=== PATIENT | male | born 1980 | race Caucasian/White ===

== ENCOUNTER → 2018-01-07 | Outpatient (REF) | payer OTHER ==
[2018-01-07 17:12] LABS: INFLUENZA A AMPLIFICATION POSITIVE (NEGATIVE); INFLUENZA B AMPLIFICATION NEGATIVE (NEGATIVE)
== END ==
LOC: M LAB REF 16:14
DX: J11.1 Influenza due to unidentified influenza virus with other respiratory manifestations (principal)
CPT/HCPCS: 87502

== ENCOUNTER → 2018-01-19 | Outpatient (REF) | payer OTHER | LOC: M LAB REF 09:30 | DX: L02.414 Cutaneous abscess of left upper limb (principal) | CPT/HCPCS: 87070 ==

== ENCOUNTER → 2019-04-23 | Outpatient (REF) | payer OTHER ==
[~2019-04-23] MED LIST: ACET1TAB16 PO; AUGM875T28 PO; CLEO300C2 PO; HYDR-3716 PO; IBUP80TA PO; LISI-538 PO; [UNRECOGNIZED DRUG - CODE] PO; [UNRECOGNIZED DRUG - OTHER] PO
[2019-04-23 18:04] LABS: ALT/SGPT 56 U/L (12-78); BILIRUBIN,TOTAL 0.5 MG/DL (0.2-1.0); BLOOD UREA NITROGEN 16 MG/DL (7-18); CALCIUM LEVEL 8.7 MG/DL (8.5-10.1); CARBON DIOXIDE LEVEL 27 MEQ/L (21-32); CHLORIDE LEVEL 104 MEQ/L (98-107); CHOLESTEROL LEVEL 203 MG/DL (<200); CHOLESTEROL RISK RATIO 5.486 (<5); GLOMERULAR FILTRATION RATE > 60.0 (>60); GLUCOSE, FASTING 102 MG/DL (70-100); HDL CHOLESTEROL 37 MG/DL (>40); LDL CHOLESTEROL 126 MG/DL (<100); NON-HDL-C 166 MG/DL; POTASSIUM SERUM 3.9 MEQ/L (3.5-5.1); SODIUM LEVEL 139 MEQ/L (136-145); TRIGLYCERIDES LEVEL 202 MG/DL (<150)
[2019-04-23 18:25] LABS: HEMOGLOBIN A1c 6.2 %
== END ==
LOC: M SFHCPLAZ 14:43
PROVIDERS: ATTEND Nurse Practitioner Adult Health
DX: I10 Essential (primary) hypertension (principal); Z13.220 Encounter for screening for lipoid disorders; Z68.41 Body mass index [BMI] 40.0-44.9, adult

== ENCOUNTER → 2020-09-28 | Outpatient (REF) | payer OTHER ==
[2020-09-28 17:30] LABS: HEMATOCRIT 50.5 % (42.0-52.0); HEMOGLOBIN 17.1 g/dl (13.5-17.5); MEAN CORPUSCULAR HEMOGLOBIN 32.5 pg (27.0-33.0); MEAN CORPUSCULAR HGB CONC 33.9 g/dl (32.0-36.5); PLATELET COUNT, AUTOMATED 203 10^3/uL (150-450); RED BLOOD COUNT 5.26 10^6/uL (4.30-6.10); WHITE BLOOD COUNT 9.3 10^3/uL (4.0-10.0)
[2020-09-28 17:59] LABS: ALBUMIN 4.2 GM/DL (3.2-5.2); ALT/SGPT 43 U/L (12-78); BILIRUBIN,TOTAL 0.4 MG/DL (0.2-1.0); BLOOD UREA NITROGEN 14 MG/DL (7-18); CARBON DIOXIDE LEVEL 28 MEQ/L (21-32); CHLORIDE LEVEL 106 MEQ/L (98-107); CHOLESTEROL LEVEL 200 MG/DL (<200); CHOLESTEROL RISK RATIO 5.405 (<5); CREATININE FOR GFR 0.98 MG/DL (0.70-1.30); GLOMERULAR FILTRATION RATE > 60.0 (>60); GLUCOSE, FASTING 110 MG/DL (70-100); HDL CHOLESTEROL 37 MG/DL (>40); LDL CHOLESTEROL 106 MG/DL (<100); NON-HDL-C 163 MG/DL; SODIUM LEVEL 139 MEQ/L (136-145); TOTAL PROTEIN 7.5 GM/DL (6.4-8.2); TRIGLYCERIDES LEVEL 283 MG/DL (<150)
[2020-09-28 19:01] LABS: HEMOGLOBIN A1c 6.3 %
== END ==
LOC: M SFHCPLAZ 14:57
PROVIDERS: ATTEND Nurse Practitioner Adult Health
DX: Z00.00 Encounter for general adult medical examination without abnormal findings (principal); I10 Essential (primary) hypertension; Z68.41 Body mass index [BMI] 40.0-44.9, adult; Z13.220 Encounter for screening for lipoid disorders

== ENCOUNTER 2020-10-20 16:41 | Emergency (ER) | payer OTHER ==
[~2020-10-20] VITALS: Ht 172.7 cm; Wt 128.8 kg
[2020-10-20] MEDS ORDERED: NAPROXEN 250 MG TAB PO ONE (17:45)
--- NOTE | 2020-10-20 18:47 | REP ---
INDICATION: upper arm pain. COMPARISON: None TECHNIQUE: Four views FINDINGS: There is no acute fracture, dislocation, subluxation, or joint effusion. IMPRESSION: Negative <Electronically signed by Mayco Marlow > 10/20/20 [id number]
--- NOTE | 2020-10-20 18:48 | REP ---
INDICATION: upper arm pain. COMPARISON: None. TECHNIQUE: Three views of the shoulder were performed. FINDINGS: The acromioclavicular and glenohumeral relationships are within normal limits. There is no acute fracture or destructive osseous lesion. IMPRESSION: Negative <Electronically signed by Mayco Marlow > 10/20/20 [id number]
--- NOTE | 2020-10-20 18:53 | REPVR ---
PROCEDURE INFORMATION: Exam: US Left Non-Vascular Joint or Other Extremity Structure, Limited Upper Extremity Exam date and time: 10/20/2020 6:23 PM Age: 40 years old Clinical indication: Upper arm and elbow; Left; Patient HX: Hanging on door and felt large pop and pain at lt distal biceps area; Additional info: Eval distal biceps tendon for rupture pls TECHNIQUE: Imaging protocol: Left US joint or other nonvascular extremity structure or structures. Real-time ultrasound with image documentation. Limited study. Exam focused on the upper extremity in the region of clinical interest. COMPARISON: No relevant prior studies available. FINDINGS: Soft tissues: The proximal biceps tendon appears intact and there is no evidence of hematoma or fluid. The distal insertion of the biceps tendon also appears intact with no evidence of fluid, tear or retraction. There is also no evidence of fluid distally. IMPRESSION: No evidence of tear of the distal biceps tendon insertion. Electronically signed by: Davis Medrano On 10/20/2020 18:53:34 PM
[2020-10-20 19:43] VITALS: BP 167/99
== END 2020-10-20 19:40 | disposition home or self-care (01) ==
LOC: M ED 16:41
DX: S49.92XA Unspecified injury of left shoulder and upper arm, initial encounter (principal); X58.XXXA Exposure to other specified factors, initial encounter; Y92.018 Other place in single-family (private) house as the place of occurrence of the external cause; I10 Essential (primary) hypertension; Z79.899 Other long term (current) drug therapy

== ENCOUNTER 2021-03-19 16:08 | Emergency (ER) | payer OTHER ==
[~2021-03-19] VITALS: Ht 172.7 cm; Wt 131.8 kg
[~2021-03-19 16:08] MED LIST changes: -LISI-538 PO; +LISI20TA33 PO
[2021-03-19] MEDS ORDERED: MUPI2OI (16:14)
[2021-03-19] MEDS ORDERED: CLINDAMYCIN 900 MG in IV 1 EA IV ONE (16:55)
[2021-03-19 17:26] LABS: HEMATOCRIT 47.8 % (42.0-52.0); HEMOGLOBIN 16.5 g/dl (13.5-17.5); MEAN CORPUSCULAR HEMOGLOBIN 33.1 pg (27.0-33.0); MEAN CORPUSCULAR HGB CONC 34.5 g/dl (32.0-36.5); MEAN CORPUSCULAR VOLUME 95.8 fl (80.0-96.0); PLATELET COUNT, AUTOMATED 230 10^3/uL (150-450); RED BLOOD COUNT 4.99 10^6/uL (4.30-6.10); WHITE BLOOD COUNT 9.5 10^3/uL (4.0-10.0)
[2021-03-19 17:50] LABS: ALBUMIN 3.9 GM/DL (3.2-5.2); ALT/SGPT 43 U/L (12-78); BILIRUBIN,DIRECT < 0.1 MG/DL (0.0-0.2); BILIRUBIN,TOTAL 0.3 MG/DL (0.2-1.0); BLOOD UREA NITROGEN 17 MG/DL (7-18); CALCIUM LEVEL 8.6 MG/DL (8.5-10.1); CARBON DIOXIDE LEVEL 29 MEQ/L (21-32); CHLORIDE LEVEL 102 MEQ/L (98-107); CREATININE FOR GFR 1.16 MG/DL (0.70-1.30); GLOMERULAR FILTRATION RATE > 60.0 (>60); GLUCOSE, FASTING 153 MG/DL (70-100); POTASSIUM SERUM 4.1 MEQ/L (3.5-5.1); SODIUM LEVEL 135 MEQ/L (136-145)
--- NOTE | 2021-03-19 18:27 | REP ---
INDICATION: ro dvt COMPARISON: None. TECHNIQUE: Hagen scale and color Doppler evaluation using linear high frequency transducer. FINDINGS: Ultrasound examination of the right lower extremity deep venous structures from the common femoral vein to the popliteal vein demonstrates normal compressibility flow and wave patterns in response to respiration and augmentation. There is no evidence for deep venous thrombosis. IMPRESSION: No evidence for deep venous thrombosis. <Electronically signed by Aubrey Keith > 03/19/21 [id number]
[2021-03-19 18:30] LABS: ATYPICAL LYMPH 1 % (0-5); BASOPHILS 1 % (0-1); LYMPHOCYTES 36 % (16-44); MONOCYTES 6 % (0-5); NEUTROPHILS 56 % (28-66)
[2021-03-19 18:31] LABS: PLATELET ESTIMATE NORMAL (NORMAL)
[2021-03-19] MEDS ORDERED: CLIN300C6 PO (18:37)
[2021-03-19 19:19] VITALS: BP 134/78
== END 2021-03-19 19:30 | disposition home or self-care (01) ==
LOC: M ED 16:08
DX: L03.115 Cellulitis of right lower limb (principal); I10 Essential (primary) hypertension; G43.909 Migraine, unspecified, not intractable, without status migrainosus; Z79.899 Other long term (current) drug therapy; F12.20 Cannabis dependence, uncomplicated

== ENCOUNTER → 2021-04-05 | Outpatient (CLI) | payer OTHER ==
[~2021-04-05] MED LIST changes: +CLIN300C6 PO; +MUPI2OI
--- NOTE | 2021-04-06 14:25 | SLEEPHOME ---
DATE: 04/05/2021 ORDERED BY: Bimal Ruby Diagnostic home sleep testing was performed due to concern for the obstructive sleep apnea syndrome. For testing, a nocturnal T3 respiratory monitoring device was used. Continuous record was made of pulse, oxygen saturation, air flow, chest and abdominal strain, and body position. There was 7 hours and 4 minutes of data reviewed. There was 5 hours and 16 minutes marked as time in bed. During the interval marked time in bed, there were 547 respiratory events identified of 10 seconds in duration or greater for a respiratory event index of 103.6. The events were primarily obstructive. There were 31 mixed and central apneas noted. Baseline pulse rate 69. Pulse rate ranged [id number]. Baseline saturation 90%. Lowest oxygen saturation 72%. Testing was performed in both the supine and nonsupine positions. IMPRESSION: Abnormal home sleep testing with repetitive respiratory events and oxygen desaturations to 79% with a respiratory event index of 103.6 is consistent with the obstructive sleep apnea syndrome. RECOMMENDATION: The patient should be encouraged to undergo formal sleep evaluation at their earliest convenience.
== END ==
LOC: M SLEEP HO 11:33
PROVIDERS: ATTEND Physician Assistant
DX: G47.33 Obstructive sleep apnea (adult) (pediatric) (principal)

== ENCOUNTER 2021-05-04 05:28 | Observation (INO) | payer OTHER ==
[~2021-05-04] VITALS: Ht 172.7 cm; Wt 132.9 kg
[2021-05-04] MEDS ORDERED: IBUP1TAB6 PO (05:36)
[2021-05-04] MEDS ORDERED: dexameTHASONE 20MG/5ML VIAL (J1100 PER 1MG) IV ONE (06:45)
[2021-05-04] MEDS ORDERED: AMPICILLIN SOD/SULBACTAM SOD 3 GM in D5W MINI-BAG PLUS 100 ML IV ONE (06:45)
[2021-05-04] MEDS ORDERED: NS 1,000 ML IV ONE (06:45)
[2021-05-04 07:19] LABS: BASO # 0.1 10^3/uL (0.0-0.2); BASO % 0.6 % (0.0-1.0); EOS # 0.3 10^3/uL (0.0-0.5); EOS % 2.7 % (0.0-3.0); HEMATOCRIT 49.8 % (42.0-52.0); HEMOGLOBIN 16.5 g/dl (13.5-17.5); LYMPH % 18.3 % (24.0-44.0); MEAN CORPUSCULAR HEMOGLOBIN 32.5 pg (27.0-33.0); MEAN CORPUSCULAR HGB CONC 33.1 g/dl (32.0-36.5); MEAN CORPUSCULAR VOLUME 98.2 fl (80.0-96.0); MONO # 0.9 10^3/uL (0.0-0.8); MONO % 8.3 % (2.0-8.0); NEUTROPHILS # 7.4 10^3/uL (1.5-8.5); NEUTROPHILS % 69.7 % (36.0-66.0); PLATELET COUNT, AUTOMATED 222 10^3/uL (150-450); RED BLOOD COUNT 5.07 10^6/uL (4.30-6.10); WHITE BLOOD COUNT 10.7 10^3/uL (4.0-10.0)
[2021-05-04 08:04] LABS: ERYTHROCYTE SEDIMENTATION RATE 9 mm/hr (0-15)
[2021-05-04 08:55] LABS: HEMOGLOBIN A1c 6.9 %
--- NOTE | 2021-05-04 09:12 | REPVR ---
PROCEDURE INFORMATION: Exam: CT Maxillofacial With Contrast; Mandible Exam date and time: 05/04/2021 7:49 AM Age: 40 years old Clinical indication: Other: Severe L mandibular swelling into neck, firm area neck TECHNIQUE: Imaging protocol: Computed tomography maxillofacial with intravenous contrast. Exam focused on the mandible. Radiation optimization: All CT scans at this facility use at least one of these dose optimization techniques: automated exposure control; mA and/or kV adjustment per patient size (includes targeted exams where dose is matched to clinical indication); or iterative reconstruction. Contrast material: ISOVUE 370; Contrast volume: 75 ml; Contrast route: INTRAVENOUS (IV); COMPARISON: No relevant prior studies available. FINDINGS: Bones/joints: Mandible is unremarkable. No acute fracture. Paranasal sinuses: Mild mucosal thickening of the ethmoidal air cells and right maxillary sinus. No air-fluid levels. Soft tissues: Moderate left lateral facial soft tissue swelling in the left pre mandibular and pre maxillary region extending up to the root of the left neck without any focal fluid collection to suggest an abscess formation. Findings most likely represent cellulitis. Teeth: Lucencies in the right mandibular molar teeth likely representing periodontal disease. Tiny lucency is seen in the left mandibular molar teeth likely periodontal disease. No cortical break or adjacent abscess formation. Lymph nodes: Multiple prominent bilateral cervical chain lymph nodes likely reactive. Submandibular/Parotid glands: There is asymmetrical enlargement of the left submandibular gland with inflammation from the left mandible and left maxilla extending up to the submandibular gland likely representing reactive parotiditis. Bilateral submandibular and right parotid glands are unremarkable. IMPRESSION: Moderate left lateral facial soft tissue swelling in the left pre mandibular and pre maxillary region extending up to the root of the left neck without any focal fluid collection to suggest an abscess formation. Findings most likely represent cellulitis. There is asymmetrical enlargement of the left submandibular gland with inflammation from the left mandible and left maxilla extending up to the submandibular gland likely representing reactive parotiditis. Electronically signed by: Anneliese Flores On 05/04/2021 09:12:28 AM
[2021-05-04] MEDS ORDERED: KETOROLAC 30 MG/ML 1ML VIAL IV ONE (09:35)
[2021-05-04] MEDS ORDERED: LOSA50TA88 PO (10:35)
[2021-05-04 11:38] LABS: RSV AMPLIFICATION NEGATIVE (NEGATIVE)
[2021-05-04] MEDS ORDERED: ACETAMINOPHEN TAB 650MG DOSE (2X325MG) PO PRN (12:25)
[2021-05-04] MEDS ORDERED: GLUCOSE 4GM CHEW TABLET PO PRN (12:30)
[2021-05-04] MEDS ORDERED: DEXTROSE 50% 50 ML SYRINGE IV PRN (12:30)
[2021-05-04] MEDS ORDERED: GLUCAGON INJ 1MG VIAL SC PRN (12:30)
--- NOTE | 2021-05-04 12:43 | HPEPDOC ---
[facility] Medical History & Physical Date of Admission May 04, 2021 Date of Service: May 04, 2021 History and Physical CHIEF COMPLAINT: Left facial swelling HISTORY OF PRESENT ILLNESS: 40-year-old male history of hypertension presents with a 2 day history of left- sided facial swelling. Tells me sent a history of multiple tooth extractions due to self teeth and dental abscesses and lately he's been unable to eat on the le ft side. His teeth have been getting worse. He doesn't have any throat swelling or trouble swallowing or breathing. He denies any fevers or chills. Denies shortness of breath. He tells me that a similar episode with facial swelling 3 years ago at that time he had bucal abscess. He denies being in pain at this time. He denies medical problems other than high blood pressure. PAST MEDICAL/SURGICAL HISTORY: Hypertension Multiple teeth extractions SOCIAL HISTORY: Endorses drinking alcohol socially Denies tobacco use Denies illicit drug use other than cannabis use FAMILY HISTORY: Reviewed and none contributory to this admission ALLERGIES: Please see below. REVIEW OF SYSTEMS: 10 point review of systems complete all negative otherwise stated in HPI HOME MEDICATIONS: Please see below. PHYSICAL EXAMINATION: Constitutional: Awake and alert, in no apparent distress, obese ENT: Sclera are clear. Poor dental hygiene. Dental cavities. Left sided facial swelling. Mild to moderate. none tender. Able to speak in full sentences and swallow. Respiratory: Lungs CTA bilaterally. No respiratory distress. No use of accessory muscles. Cardiovascular: RRR S1 and S2 are normal, no murmur Gastrointestinal: Abdomen is soft, non distended, non tender, BS present. Musculoskeletal: No lower extremity edema. Neurologic: No focal neurological deficit. Mental Status: A&O x3, normal affect Skin: No visible rashes no erythema on face LABORATORY DATA: See below. IMAGING: CT Maxillofacial With Contrast; Mandible IMPRESSION: Moderate left lateral facial soft tissue swelling in the left pre mandibular and pre maxillary region extending up to the root of the left neck without any focal fluid collection to suggest an abscess formation. Findings most likely represent cellulitis. There is asymmetrical enlargement of the left submandibular gland with inflammation from the left mandible and left maxilla extending up to the submandibular gland likely representing reactive parotiditis. MICROBIOLOGY: Please see below. ASSESSMENT/PLAN 40-year-old male history of hypertension and multiple tooth extractions presents with left-sided facial swelling found to have parotitis as well as newly diagnosed diabetes admitted for observation with IV antibiotics and planned follow-up with oral surgeon for tooth extraction upon discharge. # Possible reactive Left parotitis: likely triggered by the underlying poor teeth on that side. Admit for observation. Dr Heard oral surgery will likely do tooth extraction OP. In the meantime, IV Unasyn while inpatient then PO Augmentin on discharge and followup with Dr Heard in clinic. IVFs. # Newly diagnosed DM: ISS. Frequent Accu-Cheks. Hypoglycemic precautions. Carbohydrate consistent diet. Start with lifestyle modifications and weight loss which I discussed with patient and can follow up with PCP, if doesn't respond to lifestyle modifications PCP should consider oral antigenemics such as metformin. Should also get lipid panel done with PCP. # Hypertension: Continue home meds. Monitor and titrate # DVT prophylaxis: Lovenox [facility] Vital Signs Vital Signs Date Time Temp Pulse Resp B/P (MAP) Pulse Ox O2 Delivery O2 Flow Rate FiO2 05/04/21 11:42 162/74 (103) 05/04/21 10:30 90 96 Room Air 05/04/21 05:29 97.6 18 Laboratory Data Labs 24H Laboratory Tests 2 05/04/21 07:02: Immature Granulocyte % (Auto) 0.4, Neutrophils (%) (Auto) 69.7H, Lymphocytes (%) (Auto) 18.3L, Monocytes (%) (Auto) 8.3H, Eosinophils (%) (Auto) 2.7, Basophils (%) (Auto) 0.6, Neutrophils # (Auto) 7.4, Lymphocytes # (Auto) 2.0, Monocytes # (Auto) 0.9H, Eosinophils # (Auto) 0.3, Basophils # (Auto) 0.1, Nucleated Red B lood Cells % (auto) 0.0, Erythrocyte Sedimentation Rate 9, Estimated Mean Plasma Glucose 151H, Hemoglobin A1c 6.9, Lactic Acid Level 1.0, C-Reactive Protein, Quantitative 3.86H 05/04/21 07:11: POC Glucose (Misc Panel) 151H, POC Sodium (Misc Panel) 140, POC Potassium (Misc Panel) 4.4, POC Chloride (Misc Panel) 101, POC Total CO2 (Misc Panel) 28.0H, POC Blood Urea Nitrogen (Misc Panel 18, POC Ionized Calcium (Misc Panel) 4.9, POC Creatinine (Misc Panel) 0.7, POC Hematocrit (Misc Panel) 50.0 05/04/21 07:43: Methicillin-Resist S.aureus DNA PCR NOT DETECTED 05/04/21 10:36: Coronavirus (COVID-19)(PCR) NEGATIVE, Influenza Type A (RT-PCR) NEGATIVE, Influenza Type B (RT-PCR) NEGATIVE, Respiratory Syncytial Virus (PCR) NEGATIVE CBC/BMP Laboratory Tests 05/04/21 07:02 Microbiology Microbiology 05/04/21 Blood Culture, Received Pending 05/04/21 Blood Culture, Received Pending Home Medications Scheduled Losartan Potassium (Losartan Potassium) 50 Mg Tablet, 50 MG PO DAILY Scheduled PRN Ibuprofen (Ibuprofen) 600 Mg Tablet, 600 MG PO TID PRN for PAIN Allergies Coded Allergies: No Known Allergies (Unverified , 10/20/20) A-FIB/CHADSVASC A-FIB History Current/History of A-Fib/PAF?: No SHARAN COREA MD May 04, 2021 12:43
[2021-05-04] MEDS: HumaLOG INSULIN (NovoLOG) PER UNIT SC SCH ×2 (14:36→17:42)
[2021-05-04 14:50] VITALS: BP 156/105
[2021-05-04] MEDS: NS 1,000 ML IV SCH ×2 (16:05→21:50)
[2021-05-04] MEDS: AMPICILLIN SOD/SULBACTAM SOD 3 GM in D5W MINI-BAG PLUS 100 ML IV SCH ×2 (16:05→19:39)
[2021-05-04] MEDS ORDERED: HumaLOG INSULIN (NovoLOG) PER UNIT SC SCH (21:00)
[2021-05-04 22:00] VITALS: BP 153/94
[2021-05-05] MEDS: AMPICILLIN SOD/SULBACTAM SOD 3 GM in D5W MINI-BAG PLUS 100 ML IV SCH ×2 (01:25→08:34)
[2021-05-05] MEDS: NS 1,000 ML IV SCH (01:25)
[2021-05-05 06:00] VITALS: BP 159/88
[2021-05-05 06:32] LABS: HEMATOCRIT 48.5 % (42.0-52.0); HEMOGLOBIN 16.3 g/dl (13.5-17.5); MEAN CORPUSCULAR HEMOGLOBIN 32.8 pg (27.0-33.0); MEAN CORPUSCULAR HGB CONC 33.6 g/dl (32.0-36.5); MEAN CORPUSCULAR VOLUME 97.6 fl (80.0-96.0); PLATELET COUNT, AUTOMATED 245 10^3/uL (150-450); RED BLOOD COUNT 4.97 10^6/uL (4.30-6.10)
[2021-05-05 06:49] LABS: BLOOD UREA NITROGEN 14 MG/DL (7-18); CARBON DIOXIDE LEVEL 25 MEQ/L (21-32); CHLORIDE LEVEL 106 MEQ/L (98-107); CREATININE FOR GFR 0.76 MG/DL (0.70-1.30); GLOMERULAR FILTRATION RATE > 60.0 (>60); GLUCOSE, FASTING 152 MG/DL (70-100); POTASSIUM SERUM 4.1 MEQ/L (3.5-5.1); SODIUM LEVEL 137 MEQ/L (136-145)
[2021-05-05] MEDS: HumaLOG INSULIN (NovoLOG) PER UNIT SC SCH (08:34)
[2021-05-05 08:41] VITALS: BP 164/118
[2021-05-05] MEDS ORDERED: hydroCHLOROthiazide 12.5 MG CAPSULE PO SCH (09:00)
[2021-05-05] MEDS ORDERED: LOSARTAN 50MG TABLET PO SCH (09:00)
[2021-05-05] MEDS ORDERED: ENOXAPARIN 40MG/0.4ML SYRINGE (J1650 PER 10MG) SC SCH (09:00)
--- NOTE | 2021-05-05 09:53 | IPNPDOC ---
Subjective Date Seen The patient was seen on 05/05/21. Subjective Chief Complaint/HPI Chief complaint: facial swelling. History: Eric was admitted yesterday with left facial swelling. CT scan was done which showed cellulitis, no evidence of xochilt abscess. He was admitted to the hospitalist service and placed on IV Unasyn. He was given steroids. CBC in the ER was 10 today is 15. He reports dramatic improvement in the swelling. There is no trismus. He has a history of dental abscess requiring drainage in the past. He is aware of a poor molar on that side but is reluctant to have it removed. Objective Physical Examination ENT Exam: Positive: Other ENT (facial swelling is dramatically decreased. No fever today. No trismus. Floor mouth is soft) Assessment /Plan Assessment No indication for surgical intervention at this time VS, I&O, 24H, Fishbone Vital Signs/I&O Vital Signs Date Time Temp Pulse Resp B/P (MAP) Pulse Ox O2 Delivery O2 Flow Rate FiO2 05/05/21 08:41 164/118 05/05/21 06:00 97.5 94 18 95 Room Air I&O- Last 24 Hours up to 6 AM 05/05/21 06:00 Intake Total 4340 ml Output Total 2300 ml Balance 2040 ml Laboratory Data 24H LABS Laboratory Tests 2 05/04/21 10:36: Coronavirus (COVID-19)(PCR) NEGATIVE, Influenza Type A (RT-PCR) NEGATIVE, Influenza Type B (RT-PCR) NEGATIVE, Respiratory Syncytial Virus (PCR) NEGATIVE 05/04/21 16:36: Bedside Glucose (Misc Panel) 226H 05/04/21 20:19: Bedside Glucose (Misc Panel) 205H 05/05/21 05:50: Nucleated Red Blood Cells % (auto) 0.0, Anion Gap 6L, Glomerular Filtration Rate > 60.0, Calcium Level 9.0, Magnesium Level 2.0 CBC/BMP Laboratory Tests 05/05/21 05:50 Microbiology Microbiology 05/04/21 Blood Culture - Preliminary, Resulted No growth after 24 hours . All specim... 05/04/21 Blood Culture - Preliminary, Resulted No growth after 24 hours . All specim... Zhou Colvin MD May 05, 2021 09:53
--- NOTE | 2021-05-05 10:54 | IPNPDOC ---
Text Note Date of Service The patient was seen on 05/05/21. NOTE Subjective: Patient seen and examined this morning he tells me his facial swelling is significantly improved compared to yesterday. He was eating breakfast tells me he is not in any real pain. He understands the plan for continued antibiotics and following up with his primary care physician within the next few days as well as calling Dr. Melendrez office to schedule an appointment for early next week. No acute overnight events were reported to me. Objective: Constitutional: Awake and alert, in no apparent distress, obese ENT: Sclera are clear. Poor dental hygiene. Dental cavities. Left sided facial swelling markedly improved comapred to yesterday, now very minimal and nontender. Able to speak in full sentences and swallow. Respiratory: Lungs CTA bilaterally. No respiratory distress. No use of accessory muscles. Cardiovascular: RRR S1 and S2 are normal, no murmur Gastrointestinal: Abdomen is soft, non distended, non tender, BS present. Musculoskeletal: No lower extremity edema. Neurologic: No focal neurological deficit. Mental Status: A&O x3, normal affect Skin: No visible rashes no erythema on face Assessment/plan: 40-year-old male history of hypertension and multiple tooth extractions presents with left-sided facial swelling found to have parotitis as well as newly diagnosed diabetes admitted for observation with IV antibiotics and planned fol low-up with oral surgeon for tooth extraction upon discharge. # Possible reactive Left parotitis/cellulitis: likely triggered by the underlying poor teeth on that side. Admit for observation. Dr Heard oral surgery will see him in clinic early next week. IV Unasyn while inpatient then PO Augmentin on discharge. # Newly diagnosed DM: ISS. Frequent Accu-Cheks. Hypoglycemic precautions. Carbohydrate consistent diet. Start with lifestyle modifications and weight loss which I discussed with patient and can follow up with PCP, if doesn't respond to lifestyle modifications PCP should consider oral antigenemics such as metformin. Should also get lipid panel done with PCP. # Hypertension: Continue home meds. Monitor and titrate. Added HCTZ. Fu PCP for continued med titration. # DVT prophylaxis: Lovenox [facility] VS,Fishbone, I+O VS, Fishbone, I+O Laboratory Tests 05/05/21 05:50 Vital Signs Date Time Temp Pulse Resp B/P (MAP) Pulse Ox O2 Delivery O2 Flow Rate FiO2 05/05/21 08:41 164/118 05/05/21 06:00 97.5 94 18 95 Room Air I&O- Last 24 Hours up to 6 AM 05/05/21 06:00 Intake Total 4340 ml Output Total 2300 ml Balance 2040 ml SHARAN COREA MD May 05, 2021 10:54
[2021-05-05] MEDS ORDERED: HYDR12CA PO (10:55)
[2021-05-05] MEDS ORDERED: AUGM875T28 PO (10:56)
== END 2021-05-05 12:10 | disposition home or self-care (01) ==
LOC: M ED 05:28 → M ED INP 05:29 → ENRESERV 14:29 → M MSPAV 14:46
PROVIDERS: ADMIT Family Medicine; ATTEND Family Medicine
DX: K11.20 Sialoadenitis, unspecified (principal); K08.409 Partial loss of teeth, unspecified cause, unspecified class; E11.9 Type 2 diabetes mellitus without complications; I10 Essential (primary) hypertension; Z79.899 Other long term (current) drug therapy
CPT/HCPCS: 36415; 70487; 80047; 80048; 83036; 83605; 83735; 85025; 85027; 85652; 86140; 87040; 87631; 87641; 94760; 96365; 96366; 96372; 96375; 96376; 99285; J1100; J1650; J1885

== ENCOUNTER → 2021-08-09 | Outpatient (CLI) | payer OTHER ==
[~2021-08-09] MED LIST changes: +HYDR12CA PO; +IBUP1TAB6 PO; +LOSA50TA88 PO
[2021-08-09 15:21] LABS: ALT/SGPT 46 U/L (12-78); BILIRUBIN,TOTAL 0.4 MG/DL (0.2-1.0); BLOOD UREA NITROGEN 13 MG/DL (7-18); CALCIUM LEVEL 9.2 MG/DL (8.5-10.1); CARBON DIOXIDE LEVEL 26 MEQ/L (21-32); CHLORIDE LEVEL 100 MEQ/L (98-107); GLOMERULAR FILTRATION RATE > 60.0 (>60); GLUCOSE, FASTING 146 MG/DL (70-100); POTASSIUM SERUM 4.2 MEQ/L (3.5-5.1); SODIUM LEVEL 136 MEQ/L (136-145); TOTAL PROTEIN 7.6 GM/DL (6.4-8.2)
[2021-08-09 16:14] LABS: HEMOGLOBIN A1c 6.5 %
== END ==
LOC: M PLALAB 11:04
PROVIDERS: ATTEND Nurse Practitioner Adult Health
DX: E11.9 Type 2 diabetes mellitus without complications (principal)

== ENCOUNTER → 2021-11-08 | Outpatient (CLI) | payer OTHER ==
[~2021-11-08] MED LIST changes: +CLIN-250 PO; -CLIN300C6 PO
[2021-11-08 17:53] LABS: ALBUMIN 4.2 GM/DL (3.2-5.2); ALT/SGPT 57 U/L (12-78); BILIRUBIN,TOTAL 0.4 MG/DL (0.2-1.0); BLOOD UREA NITROGEN 14 MG/DL (7-18); CALCIUM LEVEL 9.7 MG/DL (8.5-10.1); CARBON DIOXIDE LEVEL 27 MEQ/L (21-32); CHLORIDE LEVEL 103 MEQ/L (98-107); CREATININE FOR GFR 0.88 MG/DL (0.70-1.30); GLOMERULAR FILTRATION RATE > 60.0 (>60); GLUCOSE, FASTING 148 MG/DL (70-100); POTASSIUM SERUM 4.2 MEQ/L (3.5-5.1); SODIUM LEVEL 137 MEQ/L (136-145)
[2021-11-08 17:56] LABS: HEMOGLOBIN A1c 7.8 %
== END ==
LOC: M PLALAB 14:24
PROVIDERS: ATTEND Nurse Practitioner Adult Health
DX: E11.9 Type 2 diabetes mellitus without complications (principal)

== ENCOUNTER → 2022-05-18 | Outpatient (CLI) | payer OTHER ==
[~2022-05-18] MED LIST changes: -ACET1TAB16 PO; +ACET300T48 PO; +LOSA50TA28 PO; -LOSA50TA88 PO
[2022-05-18 17:07] LABS: HEMOGLOBIN A1c 9.7 %
[2022-05-18 17:13] LABS: ALBUMIN 4.3 GM/DL (3.2-5.2); ALT/SGPT 41 U/L (12-78); BILIRUBIN,TOTAL 0.6 MG/DL (0.2-1.0); BLOOD UREA NITROGEN 17 MG/DL (7-18); CALCIUM LEVEL 9.2 MG/DL (8.5-10.1); CARBON DIOXIDE LEVEL 26 MEQ/L (21-32); CHLORIDE LEVEL 105 MEQ/L (98-107); GLOMERULAR FILTRATION RATE > 60.0 (>60); GLUCOSE, FASTING 139 MG/DL (70-100); POTASSIUM SERUM 3.8 MEQ/L (3.5-5.1); SODIUM LEVEL 139 MEQ/L (136-145); TOTAL PROTEIN 7.9 GM/DL (6.4-8.2)
== END ==
LOC: M PLALAB 15:40
PROVIDERS: ATTEND Nurse Practitioner Adult Health
DX: E11.9 Type 2 diabetes mellitus without complications (principal)

== ENCOUNTER → 2022-11-30 | Outpatient (CLI) | payer OTHER ==
[2022-11-30 14:38] LABS: HEMOGLOBIN A1c 8.3 % (4.0-6.0)
[2022-11-30 14:48] LABS: ALBUMIN 4.1 G/DL (3.2-5.2); ALKALINE PHOSPHATASE 92 U/L (46-116); ALT/SGPT 44 U/L (7.0-40); AST/SGOT 26 U/L (<34); BILIRUBIN,TOTAL 0.5 MG/DL (0.3-1.2); BLOOD UREA NITROGEN 14 MG/DL (9-23); CALCIUM LEVEL 9.1 MG/DL (8.5-10.1); CARBON DIOXIDE LEVEL 26 MMOL/L (20-31); CHLORIDE LEVEL 97 MMOL/L (98-107); CREATININE FOR GFR 0.71 MG/DL (0.70-1.30); GLOMERULAR FILTRATION RATE > 60.0 (>60); GLUCOSE, FASTING 293 MG/DL (60-100); POTASSIUM SERUM 4.3 MMOL/L (3.5-5.1); SODIUM LEVEL 134 MMOL/L (136-145); TOTAL PROTEIN 7.3 G/DL (5.7-8.2)
[2022-11-30 14:50] LABS: THYROID STIMULATING HORMONE 1.307 uIU/ML (0.55-4.78)
== END ==
LOC: M PLALAB 09:54
PROVIDERS: ATTEND Nurse Practitioner Adult Health
DX: E11.9 Type 2 diabetes mellitus without complications (principal)

== ENCOUNTER → 2023-02-14 | Outpatient (CLI) | payer OTHER ==
[2023-02-14 14:55] LABS: ALKALINE PHOSPHATASE 108 U/L (46-116); ALT/SGPT 57 U/L (7.0-40); AST/SGOT 29 U/L (<34); BILIRUBIN,TOTAL 0.6 MG/DL (0.3-1.2); BLOOD UREA NITROGEN 12 MG/DL (9-23); CALCIUM LEVEL 9.1 MG/DL (8.5-10.1); CARBON DIOXIDE LEVEL 28 MMOL/L (20-31); CHLORIDE LEVEL 95 MMOL/L (98-107); CHOLESTEROL LEVEL 203 MG/DL (<200); CHOLESTEROL RISK RATIO 5.13 (<5); CREATININE FOR GFR 0.76 MG/DL (0.70-1.30); GLOMERULAR FILTRATION RATE > 60.0 (>60); GLUCOSE, FASTING 355 MG/DL (60-100); HDL CHOLESTEROL 39.5 MG/DL (>40); LDL CHOLESTEROL 109.9 MG/DL (<100); NON-HDL-C 163.5 MG/DL; POTASSIUM SERUM 4.4 MMOL/L (3.5-5.1); SODIUM LEVEL 132 MMOL/L (136-145); THYROID STIMULATING HORMONE 1.523 uIU/ML (0.55-4.78); TOTAL PROTEIN 7.4 G/DL (5.7-8.2); TRIGLYCERIDES LEVEL 268 MG/DL (<150)
== END ==
LOC: M PLALAB 11:33
PROVIDERS: ATTEND Nurse Practitioner Adult Health
DX: E11.9 Type 2 diabetes mellitus without complications (principal)

== ENCOUNTER → 2023-07-11 | Outpatient (CLI) | payer OTHER ==
[2023-07-11 15:46] LABS: HEMOGLOBIN A1c 9.3 % (4.0-6.0)
[2023-07-11 15:55] LABS: ALBUMIN 3.8 G/DL (3.2-5.2); ALKALINE PHOSPHATASE 81 U/L (46-116); ALT/SGPT 43 U/L (7.0-40); AST/SGOT 21 U/L (<34); BILIRUBIN,TOTAL 0.6 MG/DL (0.3-1.2); BLOOD UREA NITROGEN 13 MG/DL (9-23); CALCIUM LEVEL 8.9 MG/DL (8.5-10.1); CARBON DIOXIDE LEVEL 28 MMOL/L (20-31); CHLORIDE LEVEL 100 MMOL/L (98-107); CREATININE FOR GFR 0.78 MG/DL (0.70-1.30); GLOMERULAR FILTRATION RATE > 60.0 (>60); GLUCOSE, FASTING 208 MG/DL (60-100); POTASSIUM SERUM 4.3 MMOL/L (3.5-5.1); SODIUM LEVEL 137 MMOL/L (136-145); TOTAL PROTEIN 7.1 G/DL (5.7-8.2)
== END ==
LOC: M PLALAB 10:53
PROVIDERS: ATTEND Nurse Practitioner Adult Health
DX: E11.9 Type 2 diabetes mellitus without complications (principal)

== ENCOUNTER → 2023-11-08 | Outpatient (CLI) | payer OTHER ==
[2023-11-08 18:00] LABS: HEMATOCRIT 49.7 % (42.0-52.0); HEMOGLOBIN 16.8 g/dl (13.5-17.5); MEAN CORPUSCULAR HEMOGLOBIN 33.5 pg (27.0-33.0); MEAN CORPUSCULAR HGB CONC 33.8 g/dl (32.0-36.5); PLATELET COUNT, AUTOMATED 201 10^3/uL (150-450); RED BLOOD COUNT 5.02 10^6/uL (4.30-6.10); WHITE BLOOD COUNT 8.4 10^3/uL (4.0-10.0)
== END ==
LOC: M PLALAB 13:21
PROVIDERS: ATTEND Physician Assistant Medical
DX: K62.5 Hemorrhage of anus and rectum (principal)

== ENCOUNTER → 2024-01-16 | Outpatient (CLI) | payer OTHER ==
[2024-01-16 11:29] LABS: HEMOGLOBIN A1c 7.5 % (4.0-6.0)
[2024-01-16 11:39] LABS: CREATININE, URINE 66.5 MG/DL
[2024-01-16 11:47] LABS: ALBUMIN 3.9 G/DL (3.2-5.2); ALKALINE PHOSPHATASE 85 U/L (46-116); ALT/SGPT 38 U/L (7.0-40); AST/SGOT 21 U/L (<34); BILIRUBIN,TOTAL 0.4 MG/DL (0.3-1.2); BLOOD UREA NITROGEN 17 MG/DL (9-23); CALCIUM LEVEL 9.1 MG/DL (8.5-10.1); CARBON DIOXIDE LEVEL 27 MMOL/L (20-31); CHLORIDE LEVEL 99 MMOL/L (98-107); CHOLESTEROL LEVEL 203 MG/DL (<200); CHOLESTEROL RISK RATIO 5.86 (<5); CREATININE FOR GFR 0.85 MG/DL (0.70-1.30); GLOMERULAR FILTRATION RATE > 60.0 (>60); GLUCOSE, FASTING 144 MG/DL (60-100); HDL CHOLESTEROL 34.6 MG/DL (>40); LDL CHOLESTEROL 103.6 MG/DL (<100); NON-HDL-C 168.4 MG/DL; POTASSIUM SERUM 3.5 MMOL/L (3.5-5.1); SODIUM LEVEL 136 MMOL/L (136-145); TOTAL PROTEIN 7.1 G/DL (5.7-8.2); TRIGLYCERIDES LEVEL 324 MG/DL (<150)
== END ==
LOC: M PLALAB 08:39
PROVIDERS: ATTEND Nurse Practitioner Adult Health
DX: E11.9 Type 2 diabetes mellitus without complications (principal); E78.2 Mixed hyperlipidemia

== ENCOUNTER → 2025-10-05 | Outpatient (CLI) | payer OTHER ==
[~2025-10-05] MED LIST changes: +HYDR12.510 PO; -HYDR12CA PO; -IBUP1TAB6 PO; +SFHIBU600 PO
[2025-10-05 10:11] LABS: ESTIMATED AVERAGE GLUCOSE 180.0 MG/DL (60-110)
[2025-10-05 10:20] LABS: ALT/SGPT 45 U/L (7.0-40); AST/SGOT 24 U/L (<34); CALCIUM LEVEL 9.7 MG/DL (8.5-10.1); CARBON DIOXIDE LEVEL 28 MMOL/L (20-31); CHLORIDE LEVEL 101 MMOL/L (98-107); CHOLESTEROL LEVEL 192 MG/DL (<200); CHOLESTEROL RISK RATIO 4.00 (<5); CREATININE FOR GFR 0.88 MG/DL (0.70-1.30); GLOMERULAR FILTRATION RATE > 90.0 (>60); LDL CHOLESTEROL 85.2 MG/DL (<100); NON-HDL-C 144.0 MG/DL; POTASSIUM SERUM 4.2 MMOL/L (3.5-5.1); SODIUM LEVEL 140 MMOL/L (136-145); TRIGLYCERIDES LEVEL 294 MG/DL (<150)
== END ==
LOC: M PLALAB 08:03
PROVIDERS: ATTEND Nurse Practitioner Adult Health
DX: E11.9 Type 2 diabetes mellitus without complications (principal); E78.2 Mixed hyperlipidemia

== ENCOUNTER → 2025-10-12 | Outpatient (CLI) | payer OTHER | LOC: M SOG 07:32 | PROVIDERS: ATTEND Orthopaedic Surgery | DX: M17.11 Unilateral primary osteoarthritis, right knee (principal); M25.561 Pain in right knee ==